=== PATIENT | male | born 1990 | race Caucasian/White ===

== ENCOUNTER 2016-10-05 23:42 | Emergency (ER) | payer BC ==
[~2016-10-05] VITALS: Ht 175.3 cm; Wt 68.3 kg
[~2016-10-05 23:42] MED LIST: ADDERALL XR 1010 MG PO; NAPROXEN500 MG PO; PEN-VEE K,VEET500 MG PO; ULTRAM50 MG PO
[2016-10-06 00:35] LABS: HEMATOCRIT 36.7 % (38.0-50.0); MCV 86.2 FL (86-99); MEAN PLAT.VOLUME 9.4 uM^3 (9.0-12.4); PLATELET COUNT 240 K/uL (156-360); RBC DIS.WIDTH-CV 12.2 % (11.8-14.6); RBC DIS.WIDTH-SD 37.6 % (39-53); RED BLOOD COUNT 4.26 M/uL (4.00-5.50); WHITE BLOOD COUNT 17.9 K/uL (4.1-10.2)
[2016-10-06 00:45] LABS: CHLORIDE 105 mEq/L (99-109); POTASSIUM 3.7 mEq/L (3.7-5.4); SODIUM 138 mEq/L (136-147)
[2016-10-06 00:48] LABS: GLUCOSE 119 mg/dL (70-99)
[2016-10-06 00:49] LABS: ANION GAP 9 MEQ/L (2-14)
[2016-10-06 00:50] LABS: TOTAL BILIRUBIN 0.4 mg/dL (0.0-1.0)
[2016-10-06 00:51] LABS: ALKALINE PHOSPHATASE 79 IU/L (3-129)
[2016-10-06 00:52] LABS: GFR ESTIMATE (CALCULATED) > 59 mL/min/
[2016-10-06 00:53] LABS: DIRECT BILIRUBIN 0.2 mg/dL (0.0-0.3); UREA NITROGEN (BUN) 9 mg/dL (9-23)
[2016-10-06 00:55] LABS: LIPASE 18 U/L (1.0-51.0); TROP-I INTERPRETATION NEGATIVE; TROPONIN-I < 0.01 ng/mL (0.0-0.30)
[2016-10-06 01:03] LABS: INFLUENZA A VIRAL ANTIGEN NEGATIVE; INFLUENZA B VIRAL ANTIGEN NEGATIVE
[2016-10-06 01:17] LABS: ADD MIUA? NO; BILIRUBIN NEGATIVE; BLOOD NEGATIVE; COLOR YELLOW ((YELLOW)); GLUCOSE (STRIP) NEGATIVE; KETONES TRACE; LEUKOCYTES NEGATIVE; NITRITE NEGATIVE; PROTEIN (STRIP) NEGATIVE; SPECIFIC GRAVITY 1.015 (1.000-1.030); UCUL ADDED? NO; UROBILINOGEN 0.2 MG/DL (0.2-1.0)
[2016-10-06 01:48] VITALS: BP 117/66
[2016-10-06 01:59] LABS: INTERNAL CONTROL VALID? YES; MONOSPOT (MONONUCLEOSIS SEROL) NEGATIVE
== END 2016-10-06 01:49 | disposition home or self-care (01) ==
LOC: EME 23:42
PROVIDERS: Emergency Medicine
DX: B34.9 Viral infection, unspecified (principal); F17.200 Nicotine dependence, unspecified, uncomplicated
CPT/HCPCS: 71020; 80048; 80076; 81003; 83605; 83690; 84484; 85027; 86308; 87040; 87086; 87502; 99281; 99285; J7030